=== PATIENT | female | born 1990 | race Two or more races ===

== ENCOUNTER 2016-11-10 13:45 | Emergency (ER) | payer SELFPAY ==
[~2016-11-10] VITALS: Ht 167.6 cm; Wt 113.4 kg
[2016-11-10 14:14] VITALS: BP 123/55
== END 2016-11-10 14:23 | disposition home or self-care (01) ==
LOC: ER 14:06
DX: B30.9 Viral conjunctivitis, unspecified (principal)

== ENCOUNTER 2016-12-29 21:20 | Emergency (ER) | payer MEDICAID ==
[~2016-12-29] VITALS: Ht 167.6 cm; Wt 117.0 kg
[2016-12-29 21:27] VITALS: BP 147/85
[2016-12-29] MEDS ORDERED: methylPREDNISolone SOD SUCC 125 MG/2 ML VL IM ONE (23:45)
[2016-12-29] MEDS ORDERED: LORATADINE 10 MG TAB PO ONE (23:45)
== END 2016-12-30 00:20 | disposition home or self-care (01) ==
LOC: ER 21:26
DX: T78.40XA Allergy, unspecified, initial encounter (principal); L50.9 Urticaria, unspecified; X58.XXXA Exposure to other specified factors, initial encounter; Z88.6 Allergy status to analgesic agent
CPT/HCPCS: 96372; 99283; J2930